=== PATIENT | male | born 1930 | race Caucasian/White ===

== ENCOUNTER 2019-07-07 06:44 | Day surgery (SDC) | payer MEDICARE, BC ==
[~2019-07-07] VITALS: Ht 180.3 cm; Wt 111.1 kg
[~2019-07-07 06:44] MED LIST: BENICAR HCT 12.1 TAB PO; FERROUS SU325 MG/TAB PO; FOLIC ACID 40400 MCG PO; HYTRIN 5MG C5 MG/CAP PO; PROTONIX 40MG T40 MG PO; VITAMIN C500 MG PO
[2019-07-07 07:18] VITALS: BP 117/73; PULSE 94; TEMP 97.8
[2019-07-07] MEDS ORDERED: HYTRIN 5MG C5 MG/CAP PO (07:25)
[2019-07-07] MEDS ORDERED: PRIL40 PO (07:26)
[2019-07-07] MEDS ORDERED: BENICAR HCT 12.1 TAB PO (07:26)
[2019-07-07 10:00] VITALS: BP 100/61; PULSE 83; TEMP 98
--- NOTE | 2019-07-07 10:00 | NUR ---
Pt returned via cart to [facility] 4. VSS-see flowsheet. Ambulated to recliner in nat[place] and feet reclined. Given cranberry juice per request. Denies complaints. Call light placed in reach.
[2019-07-07 10:15] VITALS: BP 108/65; PULSE 78
[2019-07-07 10:30] VITALS: BP 98/69; PULSE 76
[2019-07-07 10:45] VITALS: BP 105/58; PULSE 75
--- NOTE | 2019-07-07 11:00 | NUR ---
Pt tolerated juice. VS remain stable. DC teaching completed, verbalized understanding. Taken via wheelchair to private vehicle for dc home with son driving.
== END 2019-07-07 11:00 | disposition home or self-care (01) ==
LOC: SDCO 06:44
DX: D12.2 Benign neoplasm of ascending colon (principal); D12.4 Benign neoplasm of descending colon; D12.3 Benign neoplasm of transverse colon; D12.5 Benign neoplasm of sigmoid colon; D50.0 Iron deficiency anemia secondary to blood loss (chronic); N40.0 Benign prostatic hyperplasia without lower urinary tract symptoms; K21.9 Gastro-esophageal reflux disease without esophagitis; M17.9 Osteoarthritis of knee, unspecified; I10 Essential (primary) hypertension; D50.9 Iron deficiency anemia, unspecified; Z96.653 Presence of artificial knee joint, bilateral; Z82.61 Family history of arthritis; Z91.030 Bee allergy status
CPT/HCPCS: J2250; J3010; J7030

== ENCOUNTER 2019-07-12 09:42 | Inpatient (IN) | payer MEDICARE, BC ==
[~2019-07-12] VITALS: Ht 180.3 cm; Wt 114.0 kg
[~2019-07-12 09:42] MED LIST changes: +PRIL40 PO
[2019-08-03 08:46] VITALS: BP 128/61; PULSE 90; TEMP 97.4
[2019-08-03 08:47] VITALS: BP 128/61; PULSE 90; TEMP 97.4
--- NOTE | 2019-08-03 09:00 | NUR ---
The patient ambulated back to [facility] independently using a steady gait and appeared to tolerate the activity well. Vital signs obtained. Consent signed. 18G IV started in left hand on second attempt, LR infusing without difficulty. Assessment completed at this time. ERAS protocol ordered and meds given as scheudled. Family brought back to be at his bedside. Call light is within reach. Will continue to monitor the patient.
--- NOTE | 2019-08-03 12:20 | NUR ---
The patient was taken via cart to the operating room at this time escorted by KAISER Prasad. The patient's chart was sent with him to surgery.
--- NOTE | 2019-08-03 12:29 | NUR ---
KAISER Prasad from the operating room called to say the patient was being brought back to the pre op room due to a new irregular heart rhythm found in the operating room. Dr. Grider would like to postpone the surgery until the patient is cleared by cardiology.
--- NOTE | 2019-08-03 12:49 | NUR ---
Dr. Grider is on the phone with Dr. Hilton regarding the patient's new irregular heart rhythm and need for a cardiology consult. Dr. Grider is going to speak with the patient's family about the change in his plan of care.
--- NOTE | 2019-08-03 13:05 | NUR ---
Dr. Hilton is at the patient's bedside completing his cardiology consult at this time.
--- NOTE | 2019-08-03 13:35 | NUR ---
Report called to KAISER Dinh who will be assuming the care of the patient on 3rd surgical. She verbalized understanding and has no questions for the nurse at this time. An compounding pharmacy technician is present at the patient's bedside completing the echocardiogram as ordrered. Will continue to monitor the patient and will transfer to room 345 after the echocardiogram has been completed.
--- NOTE | 2019-08-03 14:21 | NUR ---
The patient's echocardiogram has been completed and the lab was called to come draw blood for the labs ordered.
--- NOTE | 2019-08-03 14:40 | NUR ---
The patient was transferred up to Room 345 at this time. KAISER Dinh is at the patient's bedside to accept the patient at this time. The patient's belongings and chart were transferred up with the patient. Some of the patient's family is present at the patient's bedside waiting for him to arrive. The patient ambulated from cart to the bed in his room with the stand by assistance of one nurse and appeared to tolerate the activity well. The patient denies any further needs at this time.
[2019-08-03 16:00] VITALS: BP 125/69; PULSE 63; TEMP 97.5
[2019-08-03 20:51] VITALS: BP 149/77; PULSE 57; TEMP 97.3
[2019-08-04] VITALS (7 sets, daily range): BP systolic 122–151; BP diastolic 55–87; PULSE 59–63; TEMP 97.4–98
--- NOTE | 2019-08-04 02:50 | NUR ---
PATIENT HAS BEEN DOING WELL TONIGHT. HAS BEEN UP TO THE BATHROOM SEVERAL TIMES WITH STANDBY ASSIST. DENIES ANY PAIN OR NEED FOR PAIN MEDICATION. BP IS INCREASING, WILL CONTINUE TO MONITOR THIS. NO FURTHER NEEDS AT THIS TIME.
--- NOTE | 2019-08-04 08:30 | NUR ---
Patient sitting up on edge of bed. Alert and oriented x 3. Shift assessment complete. Denies pain at this time. Fluids infusing per orders to left hand via pump. Denies further needs at this time.
[2019-08-04 09:34] LABS: BASO # 0.1 (0.0-0.2); BASO % 1.1 % (0.0-2.0); EOS # 0.3 (0.0-0.7); EOS % 4.8 % (0-4.0); GRAN # 3.5 (1.4-6.5); GRAN % 64.6 % (42.2-75.2); HEMATOCRIT 38.9 % (42.0-52.0); HEMOGLOBIN 11.1 g/dl (13.5-18.0); LYMPH # 1.2 (1.2-3.4); LYMPH % 21.2 % (20.0-51.0); MEAN CELL VOLUME 76 fl (80.0-100.0); MEAN CORPUSCULAR HEMOGLOBIN 22 pg (27.0-31.0); MEAN CORPUSCULAR HGB CONC 29 g/dl (33.0-37.0); MEAN PLATELET VOLUME 9.6 fl (7.4-10.4); MONO # 0.4 (0.1-0.6); MONO % 8.1 % (1.7-9.3); PLATELET COUNT 265 K/mm3 (130-400); RED BLOOD COUNT 5.14 M/mm3 (4.20-5.60); REDCELL DISTRIBUTION WIDTH-CV 21.6 % (11.5-14.5)
[2019-08-04 09:46] LABS: ALBUMIN 4.1 gm/dL (3.5-5.0); CALCIUM 8.8 mg/dL (8.4-10.2); CREATININE, serum 0.99 (0.66-1.25); MAGNESIUM 1.9 mg/dL (1.6-2.3); PHOSPHOROUS 3.1 mg/dL (2.5-4.5); POTASSIUM 4.4 mmol/L (3.4-5.0)
--- NOTE | 2019-08-04 09:53 | NUR ---
residential mental health worker met with patient to discuss discharge planning. Patient states he lives alone in [place] and will return there upon discharge. Patient states he drives and eats his lunch at the local senior center. Patient states that his daughter, Deb #[phone] assists with any needs. Patient has advance directives and his living will is in the medical record. Patient states his primary care provider is Dr Choi in [place], [place]. Worker left message for daughter, Deb, to call regarding discharge planning.
--- NOTE | 2019-08-04 10:00 | NUR ---
Initial visit; Patient thanked High Pressure Cleaner for looking in on her and offering God's blessings
--- NOTE | 2019-08-04 14:48 | NUR ---
Patient ambualted greater than 200 ft with stand by assist. Steady gait.
--- NOTE | 2019-08-04 18:05 | NUR ---
Patient has done well throughout the day. Denies pain at this time. Fluids infusing per orders. Denies further needs at this time. Will report off to hourly shift.
--- NOTE | 2019-08-04 19:55 | NUR ---
Resting in bed. Assessment completed. Lungs clear. Heart sounds normal. Bowels active x4. Pulses strong throughout. No edema noted. IV left hand without complications. Denies needs at this time. Denies pain. Call light in reach.
--- NOTE | 2019-08-04 22:29 | NUR ---
Independently up to restroom and returned to bed. Denies needs. Call light in reach.
--- NOTE | 2019-08-04 23:52 | NUR ---
Resting in bed. Denies needs. Call light in reach.
[2019-08-05] VITALS (11 sets, daily range): BP systolic 109–127; BP diastolic 48–69; PULSE 65–89; TEMP 97.5–98.2
--- NOTE | 2019-08-05 02:52 | NUR ---
Resting in bed. Denies needs at this time. Call light in reach.
--- NOTE | 2019-08-05 03:35 | NUR ---
IV distal occlusion-corrected. Denies needs. Call light in reach.
--- NOTE | 2019-08-05 06:01 | NUR ---
Patient had uneventful night. Patient given amio prior to surgery as ordered. Resting in bed this AM. Call light in reach.
--- NOTE | 2019-08-05 06:39 | NUR ---
Kam from OR arrived to take patient. Report given. Son at bedside.
--- NOTE | 2019-08-05 06:58 | NUR ---
Report given to KAISER Ibanez and called to ELENA Ribera.
[2019-08-05 17:23] LABS: HEMOGLOBIN 10.3 g/dl (13.5-18.0)
[2019-08-05 17:43] LABS: HEMATOCRIT 36.3 % (42.0-52.0)
--- NOTE | 2019-08-05 19:49 | NUR ---
Patient has done well postop. Hutchins to dependent drainage with clear pink urine present initially, currently yellow. Midline incision with gauze dressing in place. Lap sites x 5 with bandaids CDI. Patient also has a left lower quadrant incision with drainage present. Epidural in place, patient drowsy but arouses to voice and touch. SCDs to BLE. Post op VSS. Reported off to assistant shift supervisor.
[2019-08-06 00:13] VITALS: BP 97/57; PULSE 87; TEMP 98.1
[2019-08-06 04:02] VITALS: BP 99/50; PULSE 85; TEMP 97.2
--- NOTE | 2019-08-06 04:33 | NUR ---
Patient has had an uneventful night. Slept well throughout the night. Denies any pain, epidural in place. Hutchins catheter draining dark yellow urine. Scant amount of drainage noted to bottom of midline dressing. Dressing to left incision site was dressed by day shift nurse and has remained CDI throughout the shift. Patient denies any further needs. Will continue to monitor.
[2019-08-06 06:26] LABS: BASO % 0.1 % (0.0-2.0); GRAN # 11.9 (1.4-6.5); GRAN % 86.8 % (42.2-75.2); LYMPH # 0.8 (1.2-3.4); LYMPH % 5.5 % (20.0-51.0); MEAN CELL VOLUME 76 fl (80.0-100.0); MEAN CORPUSCULAR HGB CONC 29 g/dl (33.0-37.0); MEAN PLATELET VOLUME 10.4 fl (7.4-10.4); MONO % 7.3 % (1.7-9.3); PLATELET COUNT 206 K/mm3 (130-400); RED BLOOD COUNT 4.19 M/mm3 (4.20-5.60); REDCELL DISTRIBUTION WIDTH-CV 21.4 % (11.5-14.5)
[2019-08-06 06:29] LABS: ALBUMIN 2.7 gm/dL (3.5-5.0); BILIRUBIN,TOTAL 0.3 mg/dL (0.0-1.0); CALCIUM 7.8 mg/dL (8.4-10.2); CREATININE, serum 1.2 (0.66-1.25); POTASSIUM 4.4 mmol/L (3.4-5.0); TOTAL PROTEIN 5.3 gm/dL (6.4-8.2)
[2019-08-06 06:35] LABS: HEMATOCRIT 31.9 % (42.0-52.0); HEMOGLOBIN 9.1 g/dl (13.5-18.0); MEAN CORPUSCULAR HEMOGLOBIN 22 pg (27.0-31.0)
--- NOTE | 2019-08-06 08:00 | NUR ---
Patient in bed resting. Alert and oriented x 3. Shift assessment complete. Midline incision with gauze is CDI. Lap sites x 5 with bandaids CDI. lap site to left lower quadrant with staple intact. Hutchins to dependent drainage with clear yellow urine present. Denies pain or further needs at this time.
[2019-08-06 08:24] VITALS: BP 108/54; PULSE 81; TEMP 97.5
[2019-08-06 11:56] VITALS: BP 100/50; PULSE 82; TEMP 97.8
[2019-08-06 16:26] VITALS: BP 104/56; PULSE 75; TEMP 97.5
--- NOTE | 2019-08-06 18:37 | NUR ---
Patient sitting up in recliener. Hutchins maintained to dependent drainage per Dr. Grider. Epidural site intact. Continues to deny pain. Tolerating diet without difficulty. Denies further needs at this time. Will report off to rn shift mgr.
[2019-08-06 20:26] VITALS: BP 117/59; PULSE 74; TEMP 97.5
[2019-08-07 00:30] VITALS: BP 117/62; PULSE 72; TEMP 97.5
[2019-08-07 03:08] VITALS: BP 115/57; PULSE 73; TEMP 97.4
[2019-08-07 06:27] LABS: BASO % 0.3 % (0.0-2.0); EOS # 0.2 (0.0-0.7); EOS % 1.4 % (0-4.0); GRAN # 12.6 (1.4-6.5); GRAN % 86.1 % (42.2-75.2); HEMATOCRIT 31.4 % (42.0-52.0); HEMOGLOBIN 8.7 g/dl (13.5-18.0); LYMPH % 6.9 % (20.0-51.0); MEAN CELL VOLUME 79 fl (80.0-100.0); MEAN CORPUSCULAR HEMOGLOBIN 22 pg (27.0-31.0); MEAN CORPUSCULAR HGB CONC 28 g/dl (33.0-37.0); MEAN PLATELET VOLUME 10.1 fl (7.4-10.4); MONO # 0.7 (0.1-0.6); MONO % 4.8 % (1.7-9.3); PLATELET COUNT 193 K/mm3 (130-400); RED BLOOD COUNT 3.99 M/mm3 (4.20-5.60); REDCELL DISTRIBUTION WIDTH-CV 21.4 % (11.5-14.5)
--- NOTE | 2019-08-07 06:35 | NUR ---
RESTING QUIETLY/SLEEPING MOST OF THE NIGHT. NO N/V. NO c/o PAIN.
[2019-08-07 06:37] LABS: ALBUMIN 2.8 gm/dL (3.5-5.0); BILIRUBIN,TOTAL 0.3 mg/dL (0.0-1.0); CALCIUM 7.7 mg/dL (8.4-10.2); CREATININE, serum 1.13 (0.66-1.25); POTASSIUM 4.6 mmol/L (3.4-5.0); TOTAL PROTEIN 5.5 gm/dL (6.4-8.2)
[2019-08-07 08:04] VITALS: BP 103/66; PULSE 73; TEMP 97.6
[2019-08-07 11:42] VITALS: BP 132/59; PULSE 80; TEMP 97.8
[2019-08-07 16:54] VITALS: BP 126/76; PULSE 74; TEMP 97.8
--- NOTE | 2019-08-07 18:00 | NUR ---
Patient has been doing well today. He walked in the hallway a few times. He sat up in the chair most the day. He is tolerating regular diet well. He is eating slowly and smaller meals. No complaints of pain today. No other changes at this time.
[2019-08-07 20:06] VITALS: BP 125/62; PULSE 73; TEMP 97.6
[2019-08-08] VITALS (7 sets, daily range): BP systolic 114–153; BP diastolic 63–91; PULSE 75–132; TEMP 97.2–99.5
--- NOTE | 2019-08-08 04:57 | NUR ---
RESTING QUIETLY. PT c/o SOME NAUSEA THIS MORNING. ZOFRAN ADMIN. NO c/o PAIN AT REST.
--- NOTE | 2019-08-08 08:25 | NUR ---
Contacted Dr. Felipe, patient complaining of nausea, new order for phenergan entered, patient diet changed to full liquid. No new orders.
--- NOTE | 2019-08-08 08:30 | NUR ---
Patient in bed, alert and oriented x 3. Shift assessment complete. Patient states that nausea is better after medication administration. Abdomen distended this AM, patient states he is now passing gas, denies BM. Midline incision and lap sites with edges well approximated. Hutchins maintained to dependent drainage with clear yellow urine present in bag. Denies pain or further needs at this time.
--- NOTE | 2019-08-08 10:13 | NUR ---
Paged Dr. Milligan, patients HR [id number]
[2019-08-08 10:38] LABS: HEMATOCRIT 39.2 % (42.0-52.0); INR 1.3 (0.8-3.0); MEAN CELL VOLUME 78 fl (80.0-100.0); MEAN CORPUSCULAR HEMOGLOBIN 22 pg (27.0-31.0); MEAN CORPUSCULAR HGB CONC 28 g/dl (33.0-37.0); MEAN PLATELET VOLUME 9.9 fl (7.4-10.4); PLATELET COUNT 283 K/mm3 (130-400); PROTHROMBIN TIME 14.7 SECONDS (9.7-12.8); RED BLOOD COUNT 5.03 M/mm3 (4.20-5.60); REDCELL DISTRIBUTION WIDTH-CV 21.8 % (11.5-14.5)
[2019-08-08 10:45] LABS: ALBUMIN 3.6 gm/dL (3.5-5.0); BILIRUBIN,TOTAL 0.5 mg/dL (0.0-1.0); CALCIUM 8.7 mg/dL (8.4-10.2); CREATININE, serum 1.04 (0.66-1.25); POTASSIUM 4.7 mmol/L (3.4-5.0)
[2019-08-08 11:16] LABS: HEMOGLOBIN 11.1 g/dl (13.5-18.0)
[2019-08-08 11:42] LABS: BAND 1 % (0-10); LYMPHOCYTE 2 % (20.0-51.0); MICROCYTOSIS 1+; NEUTROPHILS 96 % (42.0-75.2)
[2019-08-08 11:43] LABS: HYPOCHROMIA 3+; PLATELET ESTIMATE NORMAL (NORMAL)
[2019-08-08 11:44] LABS: POIKILOCYTOSIS 1+; SCHISTOCYTES 1+
[2019-08-08 11:46] LABS: ANISOCYTOSIS 1+
--- NOTE | 2019-08-08 14:43 | NUR ---
Assisted patient back to bed. Patient had 50 ml of green emisis when back in bed.
--- NOTE | 2019-08-08 16:07 | NUR ---
Notified Dr. Grider, patient has been tachy throughout the day occasionally up into the 130's.
--- NOTE | 2019-08-08 19:23 | NUR ---
Patient has done better this afternoon, continues to complain of nausea. Zofran given per orders. Hutchins maintained to dependent drainage with clear mati urine present in bag. Denies further needs at this time. Reported off to machinist 2nd shift.
--- NOTE | 2019-08-08 19:36 | NUR ---
Patient daughter Summer called to check on patient. Privacy password provided. Updated daughter. All questions answered.
--- NOTE | 2019-08-08 21:08 | NUR ---
Lying in bed on back. Has sat up multiple times due to nausea. Vomited a couple times. Denies pain but continues to complain of some nausea, has gotten better since getting medication earlier. Midline abd incision and lap sites x6 with edges well approximated, no drainage/redness/edema. Epidural in back intact without any redness, drainage, or edema. Hutchins intact draining dark clear yellow urine. Patient denies further needs at this time.
--- NOTE | 2019-08-08 21:59 | NUR ---
Patient in sinus tach in 120s to 150s. Pulse increases with nausea and vomiting. Spoke with Dr. Demarcus billy to increase telemetry pulse to 140, pulse expected with patient current condition.
--- NOTE | 2019-08-08 23:45 | NUR ---
Attempt to flush INT to left hand prior to hanging phenergan, site infiltrated. Dc'd site, catheter intact, 2x2's applied to site and reinforced with tape. #20 gauge started in right AC times one stick by KAISER Doan. Blood return received and flushes without difficulty. Reinforced site with tegaderm and tape. Patient tolerates the procedure without difficulty.
[2019-08-09] VITALS: BP 120/88; PULSE 125; TEMP 98.3
--- NOTE | 2019-08-09 03:02 | NUR ---
Sitting up in bed, complains of nausea. Zofran administered as ordered at this time. Patient denies further needs at this time.
[2019-08-09 04:00] VITALS: BP 121/84; PULSE 98; TEMP 98.4
--- NOTE | 2019-08-09 04:03 | NUR ---
Sitting up in bed with eyes closed. Respirations even and unlabored. No signs or symptoms of discomfort noted.
--- NOTE | 2019-08-09 06:13 | NUR ---
Lying in bed with eyes closed. respirations even and unlabored, no signs or symptoms of discomfort noted. Telemetry throughout night ranged from heart rate in 90's to 130's, sinus rhythm to sinus tach. At this time telemetry is showing sinus tach heart rate 130's. No drainage, edema, or redness to mid abd incision or the six lap sites. Main complaint from patient through evening was nausea.
[2019-08-09 06:24] LABS: HEMATOCRIT 37.9 % (42.0-52.0); HEMOGLOBIN 11.1 g/dl (13.5-18.0); MEAN CELL VOLUME 76 fl (80.0-100.0); MEAN CORPUSCULAR HEMOGLOBIN 22 pg (27.0-31.0); MEAN CORPUSCULAR HGB CONC 29 g/dl (33.0-37.0); MEAN PLATELET VOLUME 10.2 fl (7.4-10.4); REDCELL DISTRIBUTION WIDTH-CV 21.7 % (11.5-14.5)
[2019-08-09 06:31] LABS: ALBUMIN 3.6 gm/dL (3.5-5.0); BILIRUBIN,TOTAL 0.5 mg/dL (0.0-1.0); CALCIUM 8.9 mg/dL (8.4-10.2); CREATININE, serum 1.25 (0.66-1.25); POTASSIUM 4.6 mmol/L (3.4-5.0); TOTAL PROTEIN 6.7 gm/dL (6.4-8.2)
[2019-08-09 06:46] LABS: PLATELET COUNT 383 K/mm3 (130-400)
--- NOTE | 2019-08-09 07:12 | NUR ---
Report provided to KAISER Noel.
[2019-08-09 07:50] VITALS: BP 104/68; PULSE 88; TEMP 97.3
--- NOTE | 2019-08-09 08:00 | NUR ---
UPON ENTRY TO THE ROOM THE PATIENT IS SITTING UP IN THE CHAIR. THE PATIENT IS A&OX4 WITH IMPULSIVE BEHAVIOR AND FORGETFULNESS. TACHYCARDIA WITH REGULAR RHYTHM NOTED. PATIENT IS TACHYPNIC. PATIENT DENIES SOB. PATIENT STATES THAT HE HAS HAD A PRODUCTIVE COUGH WITH WHITE SPUTUM, UNOBSERVED BY THIS NURSE. LUNG BASES DIMINISHED BILATERALLY. UPPER LUNG LOBES CLEAR UPON AUSCULTATION. TELE IN PLACE. ABDOMEN IS DISTENDED AND FIRM TO PALPATION. BOWEL SOUNDS HYPOACTIVE ALL FOUR QUADRANTS. MIDLINE INCISION LETTY INTACT WITH EDGES WELL APPROXIMATED. ABDOMINAL LAP SITES [address] LETTY IN PLACE AND EDGES WELL APPROXIMATED. GENERALIZED WEAKNESS NOTED. EPIDURAL IN PLACE. PADILLA CATHETER DRAINAGE CLEAR KING COLORED URINE. RIGHT AC TO INT. CALL LIGHT WITHIN REACH. PATIENT DENIES ANY NEEDS AT THIS TIME.
--- NOTE | 2019-08-09 09:04 | NUR ---
HOSPITALIST CONSULT CALLED TO [facility]. NO ORDERS GIVEN AT THIS TIME.
[2019-08-09 09:31] LABS: BAND 1 % (0-10); LYMPHOCYTE 1 % (20.0-51.0); MICROCYTOSIS 1+; NEUTROPHILS 92 % (42.0-75.2); PLATELET ESTIMATE NORMAL (NORMAL); TOXIC GRANULATION PRESENT
[2019-08-09 09:32] LABS: ANISOCYTOSIS 1+; TARGET CELLS 1+
[2019-08-09 11:06] LABS: INR 1.3 (0.8-3.0)
--- NOTE | 2019-08-09 11:06 | NUR ---
DISCONTINUED EPIDURAL PER ORDERS. TIP INTACT, PT TOLERATED WELL. DRESSED WITH BANDAID OVER INSERTION SITE.
[2019-08-09 11:10] VITALS: BP 90/57; PULSE 92
--- NOTE | 2019-08-09 12:03 | NUR ---
PATIENT SITTING UP IN THE CHAIR. PATIENT HAD SMALL EPISODE OF EMESIS INTO BASIN. AFTER EPISODE OF EMESIS AUDITORY GURGLES NOTED WITH RESPIRATIONS. PATIENT BECAME CYANOTIC, PULSE THREADY. CODE CALLED. CARDIOPULMONARY, HOSPITALIST, DR. PÉREZ NOTIFIED. PATIENT TRANSFERRED INTO BED. CPR INITIATED.
--- NOTE | 2019-08-09 13:13 | NUR ---
[facility] called to make aware of patients . Patient is not a candidate for transplant due to age of patient. Confirmation # [id number]. Quantitative Associate made aware of decision made by [facility]
--- NOTE | 2019-08-09 14:56 | NUR ---
SENIOR CREDIT OFFICER student and Worker responded to a code blue on surgical floor. Time of patient was 1220. The patient's family chose [facility] in [place] , [place]. They will be here at approximately 1545 for pickers material handlers. Patient's son, Jimy . Patient's daughter, Deb . SENIOR CREDIT OFFICER student collaborated the above information with the patient's nurse and housekeeping associate.
--- NOTE | 2019-08-09 15:05 | NUR ---
Initial visit; Attended of patient. Offered presence and comfort, later bringing family to room for family time with the offering comfort and prayer.
--- NOTE | 2019-08-09 15:51 | NUR ---
ARRIVED FOR EKG AT 1150. PT WAS VOMITTING AND BECAME UNRESPONSIVE. CALLED FOR HELP AND PT MOVED FROM RECLINER TO BED, WITH START OF CPR AT 1206. PT SUCTIONED FOR LARGE AMOUNTS OF COFFEE GROUND EMESIS. DR JUARES AT BEDSIDE ASSISTING WITH RESPIRATIONS AND ATTEMTED INTUBATION WITH GLIDE SCOPE. CODE CALLED AT 1220 BY .
== END 2019-08-09 15:47 | disposition expired | DRG 330 ==
LOC: INPTSU 08-03 07:46 → SURG 08-03 07:46
PROVIDERS: ADMIT Surgery
PROC: 0DTF0ZZ Resection of Right Large Intestine, Open Approach (ICD-10-PCS; principal; 2019-08-05 07:30)
PROC: 0DBL0ZZ Excision of Transverse Colon, Open Approach (ICD-10-PCS; 2019-08-05 07:30)
PROC: 0BH17EZ Insertion of Endotracheal Airway into Trachea, Via Natural or Artificial Opening (ICD-10-PCS; 2019-08-09)
DX: C18.2 Malignant neoplasm of ascending colon (principal); I48.92 Unspecified atrial flutter; K91.89 Other postprocedural complications and disorders of digestive system; K56.7 Ileus, unspecified; H46.9 Unspecified optic neuritis; D50.9 Iron deficiency anemia, unspecified; D12.4 Benign neoplasm of descending colon; Y83.9 Surgical procedure, unspecified as the cause of abnormal reaction of the patient, or of later complication, without mention of misadventure at the time of the procedure; I46.9 Cardiac arrest, cause unspecified; Y92.239 Unspecified place in hospital as the place of occurrence of the external cause; I48.91 Unspecified atrial fibrillation; K44.9 Diaphragmatic hernia without obstruction or gangrene; E66.01 Morbid (severe) obesity due to excess calories; Z68.34 Body mass index [BMI] 34.0-34.9, adult; I10 Essential (primary) hypertension; D64.9 Anemia, unspecified; N40.0 Benign prostatic hyperplasia without lower urinary tract symptoms; K21.9 Gastro-esophageal reflux disease without esophagitis; H54.7 Unspecified visual loss; Z96.652 Presence of left artificial knee joint; Z53.31 Laparoscopic surgical procedure converted to open procedure
CPT/HCPCS: 99232-AI; A4314; A9284; J0171; J0690; J1100; J1200; J2250; J2370; J2405; J2550; J2704; J3010; J7050; J7120